=== PATIENT | female | born 1990 | race Caucasian/White ===

== ENCOUNTER 2019-05-23 15:04 | Emergency (ER) | payer BC, OTHER ==
--- NOTE | 2019-05-23 15:23 | ED Physician Documentation ---
History of Present Illness - Stated complaint Stated Complaint: RAPID HR - Chief complaint Chief Complaint: Cardiac - Additonal information Additional information: This is a 29-year-old female with a history of presumed SVT who presents with racing heart rate. Patient states that about every 6 months she has episodes where her heart is racing she has a strong family history of SVT, but she has never been in an abnormal rhythm long enough for them to diagnose her. She has had work-ups including EKGs when she is asymptomatic that have been unrevealing. Today she developed some racing heart around An hour ago and it did not get better when she bear down, so she presents to the emergency department. She is currently 30 weeks . She had some mild chest discomfort associated with the heart racing, but now feels completely better. No shortness of breath. No leg swelling, no history of blood clots. No drug use. Review of Systems Constitutional: denies: Fever Cardiac: reports: Palpitations Respiratory: denies: Dyspnea GI: denies: Abdominal Pain PD PAST MEDICAL HISTORY - Past Medical History Past Medical History: Yes Cardiovascular: Arrhythmia, Other Other Past Medical History: SVT - Past Surgical History Past Surgical History: No - Allergies Allergies/Adverse Reactions: Allergies Allergy/AdvReac Type Severity Reaction Status Date / Time No Known Drug Allergies Allergy Verified 05/23/19 15:10 - Social History Does the pt smoke?: No Smoking Status: Never smoker Does the pt drink ETOH?: No Does the pt have substance abuse?: No - Immunizations Immunizations are current?: Yes - POLST Patient has POLST: No PD ED PE NORMAL - Vitals Vital signs reviewed: Yes - General General: Alert and oriented X 3, No acute distress - HEENT HEENT: PERRL - Neck Neck: Supple, no meningeal sign - Cardiac Cardiac: RRR (Regular rate in 90s on my exam), No murmur - Respiratory Respiratory: Clear bilaterally - Abdomen Abdomen: Other - Derm Derm: Warm and dry - Extremities Extremities: No deformity - Neuro Neuro: Alert and oriented X 3 - Psych Psych: Normal mood, Normal affect Results - Vitals Vitals: Vital Signs - 24 hr 05/23/19 05/23/19 05/23/19 15:07 15:10 15:36 Temperature 35.9 C L Heart Rate 189 H 89 96 Respiratory 20 18 18 Rate Blood Pressure 146/99 H 123/82 H 126/77 O2 Saturation 100 99 99 05/23/19 15:40 Temperature Heart Rate 101 H Respiratory 19 Rate Blood Pressure 123/76 O2 Saturation 99 Oxygen O2 Source Room air - EKG (time done) 15:05 Other comments: Other comments (Rate 188, rhythm SVT, there is slight ST depression in the lateral leads, likely rate related. No ST segment elevation.) 15:28 Other comments: Other comments (Rate 91, rhythm sinus, there is no ST segment elevation or depression, no abnormal T wave inversions. Intervals are within normal limits. QTc 431. There is no delta wave. No signs of Brugada syndrome or HCM.) - Rads (name of study) Bedside OB POCUS Radiology: Other (Single intrauterine with HR 150, excellent movement.) PD MEDICAL DECISION MAKING - ED course Complexity details: considered differential (SVT, VT, A fib, dysrhtyhmia, WPW) ED course: Pt presents with palpitations, EKG was done in triage showing SVT, I promptly arrive in patient's room when notified of the pt and pt had already converted into sinus rhtyhm. She was now asymptomatic with no residual symptoms whatsoever, no chest pain or shortness of breath. Repeat EKG shows no signs of prolonged QTc, HCM, brugada, WPW, or ARVD. Bedside US showed fetus with normal HR and good movement. Pt has no bleeding or contractions and has OB follow up within a couple days. She has no CAD risk factors, so signs of DVT or HF or risk factors for PE. I discussed follow up, return precautions with any worsening, and techniques for attempting self-termination of SVT, which patient is aware of . After a period of observation pt remains well-appearing and symptom free and was discharged home. Departure - Departure Disposition: 01 Home, Self Care Clinical Impression: SVT (supraventricular tachycardia) Condition: Good Instructions: ED Tachycardia Pat PSVT Comments: You had an abnormal heart rhythm today, this appeared to be supraventricular tachycardia or SVT. You converted out of it spontaneously. Since you have had recurrence of this I think that you should see an focused factory manager, please talk to your primary care provider about a referral. I do not think focused factory manager is going to want to do any interventions until after you deliver. If you develop any chest pain, shortness of breath, or other concerning symptoms please return to the emergency department. If you have a feeling of your heart racing at home try the bearing down/vagal maneuvers that we talked about, if this is not working come into the emergency department or Call 911. Discharge Date/Time: 05/23/19 16:12
[2019-05-23 16:03] VITALS: BP 123/76
== END 2019-05-23 16:12 | disposition home or self-care (01) ==
LOC: ED 15:04
DX: O99.413 Diseases of the circulatory system complicating pregnancy, third trimester (principal); I47.1 Supraventricular tachycardia; Z3A.30 30 weeks gestation of pregnancy
CPT/HCPCS: 80053; 83690; 85025; 93005; 99284

== ENCOUNTER 2020-07-06 08:29 | Outpatient (CLI) | payer OTHER ==
[2020-07-06 15:26] LABS: ALBUMIN 4.5 g/dL (3.2-5.5); ALBUMIN/GLOBULIN RATIO 1.6 (1.0-2.2); ALKALINE PHOSPHATASE 38 IU/L (42-121); ALT ALANINE AMINOTRANSFERASE 17 IU/L (10-60); AST ASPARTATE AMINOTRANSFERASE 15 IU/L (10-42); BILIRUBIN,TOTAL 1.9 mg/dL (0.2-1.0); BUN - BLOOD UREA NITROGEN 13 mg/dL (6-20); CARBON DIOXIDE - CO2 22 mmol/L (21-32); CHLORIDE 104 mmol/L (101-111); CHOL/HDL RATIO 3.2 (<4.4); CHOLESTEROL 161 mg/dL; CREATININE 0.8 mg/dL (0.4-1.0); GLUCOSE 94 mg/dL (70-100); HDL CHOLESTEROL 51 mg/dL; LDL CHOLESTEROL,CALCULATED 92 mg/dL; LDL/HDL RATIO 1.8 (<4.4); TOTAL PROTEIN 7.4 g/dL (6.7-8.2); VLDL CHOLESTEROL 18 mg/dL
[2020-07-06 15:32] LABS: BASOPHILS % (AUTO) 0.7 %; EOSINOPHILS # (AUTO) 0.1 10^3/uL (0.0-0.7); EOSINOPHILS % (AUTO) 2.4 %; HGB - HEMOGLOBIN 14.1 g/dL (12.0-16.0); LYMPHOCYTES # (AUTO) 1.5 10^3/uL (1.5-3.5); LYMPHOCYTES % (AUTO) 33.4 %; MEAN CORPUSCULAR HEMOGLOBIN 31.2 pg (27.0-31.0); MEAN CORPUSCULAR HGB CONC 32.7 g/dL (32.0-36.0); MEAN CORPUSCULAR VOLUME 95.4 fL (81.0-99.0); MEAN PLATELET VOLUME 12.6 fL (7.9-10.8); MONOCYTES # (AUTO) 0.3 10^3/uL (0.0-1.0); MONOCYTES % (AUTO) 6.4 %; NEUTROPHILS # (AUTO) 2.6 10^3/uL (1.5-6.6); NEUTROPHILS % (AUTO) 56.9 %; PLT - PLATELET COUNT 196 10^3/uL (130-450); RED BLOOD COUNT 4.52 10^6/uL (4.20-5.40); RED CELL DISTRIBUTION WIDTH 11.6 % (12.0-15.0); WHITE BLOOD COUNT 4.5 x10^3/uL (4.8-10.8)
== END 2020-07-06 08:30 | disposition home or self-care (01) ==
LOC: LAB.S 08:29
PROVIDERS: ATTEND Registered Nurse
DX: Z01.419 Encounter for gynecological examination (general) (routine) without abnormal findings (principal)
CPT/HCPCS: 36415; 80053; 80061; 83721; 84443; 85025

== ENCOUNTER 2021-10-03 08:00 | Outpatient (CLI) | payer OTHER ==
[2021-10-03 19:57] LABS: BILIRUBIN,URINE NEGATIVE (NEGATIVE); GLUCOSE, URINE (UA) NEGATIVE (NEGATIVE); KETONES,URINE (UA) NEGATIVE (NEGATIVE); LEUKOCYTE ESTERASE, URINE NEGATIVE (NEGATIVE); NITRITE,URINE NEGATIVE (NEGATIVE); OCCULT BLOOD,URINE NEGATIVE (NEGATIVE); PH,URINE 5.5 PH (5.0-7.5); PROTEIN,URINE NEGATIVE (NEGATIVE); UROBILINOGEN,URINE 0.2 (NORMAL) E.U./dL (NORMAL)
[2021-10-03 20:01] LABS: CLARITY,URINE CLOUDY (CLEAR)
[2021-10-03 20:14] LABS: AMORPHOUS SEDIMENT,UR Marked /LPF; BACTERIA,URINE None Seen /HPF (None Seen); RBC,URINE None Seen /HPF (0-5); SQUAMOUS EPITHELIAL CELL,UR RARE Squamous (<= Few); WBC,URINE 0-3 /HPF (0-5)
== END 2021-10-03 23:59 | disposition home or self-care (01) ==
LOC: LAB.S 08:00
PROVIDERS: ATTEND Emergency Medicine
DX: R30.0 Dysuria (principal)
CPT/HCPCS: 81001; 87086

== ENCOUNTER 2023-06-26 08:15 | Outpatient (CLI) | payer OTHER ==
[2023-06-26 14:51] LABS: BASOPHILS % (AUTO) 0.7 %; EOSINOPHILS # (AUTO) 0.2 10^3/uL (0.0-0.7); EOSINOPHILS % (AUTO) 2.9 %; HCT - HEMATOCRIT 41.5 % (37.0-47.0); HGB - HEMOGLOBIN 13.8 g/dL (12.0-16.0); LYMPHOCYTES # (AUTO) 1.6 10^3/uL (1.5-3.5); LYMPHOCYTES % (AUTO) 29.5 %; MEAN CORPUSCULAR HEMOGLOBIN 31.3 pg (27.0-31.0); MEAN CORPUSCULAR HGB CONC 33.3 g/dL (32.0-36.0); MEAN CORPUSCULAR VOLUME 94.1 fL (81.0-99.0); MEAN PLATELET VOLUME 12.5 fL (7.9-10.8); MONOCYTES # (AUTO) 0.4 10^3/uL (0.0-1.0); MONOCYTES % (AUTO) 6.8 %; NEUTROPHILS # (AUTO) 3.3 10^3/uL (1.5-6.6); NEUTROPHILS % (AUTO) 59.7 %; PLT - PLATELET COUNT 198 10^3/uL (130-450); RED BLOOD COUNT 4.41 10^6/uL (4.20-5.40); RED CELL DISTRIBUTION WIDTH 11.3 % (12.0-15.0); WHITE BLOOD COUNT 5.6 x10^3/uL (4.8-10.8)
[2023-06-26 16:20] LABS: THYROID STIMULATING HORMONE 2.06 uIU/mL (0.34-5.60)
[2023-06-26 16:31] LABS: ALBUMIN 4.6 g/dL (3.2-5.5); ALBUMIN/GLOBULIN RATIO 1.8 (1.0-2.2); ALKALINE PHOSPHATASE 53 IU/L (42-121); ALT ALANINE AMINOTRANSFERASE 11 IU/L (10-60); AST ASPARTATE AMINOTRANSFERASE 14 IU/L (10-42); BILIRUBIN,TOTAL 1.3 mg/dL (0.2-1.0); BUN - BLOOD UREA NITROGEN 15 mg/dL (6-20); CALCIUM 9.5 mg/dL (8.5-10.3); CARBON DIOXIDE - CO2 26 mmol/L (21-32); CHLORIDE 104 mmol/L (101-111); CHOL/HDL RATIO 2.7 (<4.4); CHOLESTEROL 159 mg/dL; CREATININE 0.7 mg/dL (0.6-1.3); GFR - MDRD 97 (>89); GLUCOSE 78 mg/dL (74-104); HDL CHOLESTEROL 58 mg/dL; LDL CHOLESTEROL,CALCULATED 89 mg/dL; LDL/HDL RATIO 1.5 (<4.4); POTASSIUM 4.1 mmol/L (3.5-4.5); SODIUM 137 mmol/L (135-145); TOTAL PROTEIN 7.2 g/dL (6.4-8.9); TRIGLYCERIDES 62 mg/dL (48-352); VLDL CHOLESTEROL 12 mg/dL
== END 2023-06-26 08:16 | disposition home or self-care (01) ==
LOC: LAB.S 08:15
PROVIDERS: ATTEND Nurse Practitioner
DX: Z00.00 Encounter for general adult medical examination without abnormal findings (principal); Z13.220 Encounter for screening for lipoid disorders; R63.5 Abnormal weight gain
CPT/HCPCS: 36415; 80053; 80061; 83721; 84443; 85025